=== PATIENT | male | born 1995 | race Caucasian/White ===

== ENCOUNTER 2024-03-03 05:25 | Day surgery (SDC) | payer OTHER ==
[~2024-03-03] VITALS: Ht 177.8 cm; Wt 95.6 kg
[~2024-03-03 05:25] MED LIST: LR 1,000 ML IV SCH; Ondansetron 4 MG/2 ML VIAL IV PRN
[2024-03-03] MEDS ORDERED: TUMS ULTRA ST1000 MG PO (06:01)
[2024-03-03] MEDS ORDERED: PROTONIX 40MG T40 MG PO (06:05)
[2024-03-03 06:18] VITALS: BP 132/85; PULSE 78; TEMP 97.8
[2024-03-03] MEDS ORDERED: Lidocaine PF 2% (20 MG/ML) 5 ML VIAL ONE (07:11)
[2024-03-03 07:35] VITALS: BP 115/80; PULSE 85; TEMP 98.1
--- NOTE | 2024-03-03 07:35 | NUR ---
PATIENT RETURNS TO BAY 1 IN ENDOSCOPY. VITAL SIGNS WNL. PATIENT REQUESTS WATER AND A MUFFIN. FRIEND IS AT BEDSIDE. CALL LIGHT WITHIN REACH. WILL CONTINUE TO MONITOR.
[2024-03-03 07:50] VITALS: BP 116/84; PULSE 86
--- NOTE | 2024-03-03 07:50 | NUR ---
PATIENT IS DOING WELL. DENIES ANY PAIN OR NAUSEA AFTER EATING AND DRINKING. IV DISCONTINUED. WAITING FOR PHYSICIAN TO SPEAK WITH PATIENT. WILL DISCHARGE ONCE PATIENT IS READY.
[2024-03-03 08:05] VITALS: BP 120/82; PULSE 76
--- NOTE | 2024-03-03 08:05 | NUR ---
PATIENT IS READY FOR DISCHARGE. LAST SET OF VITALS WNL. DISCHARGE INSTRUCTIONS REVIEWED WITH PATIENT AND HIS FRIEND. WILL DISCHARGE VIA WC WHEN PATIENT IS DRESSED.
== END 2024-03-03 08:10 | disposition home or self-care (01) ==
LOC: SDCO 05:25
DX: K21.00 Gastro-esophageal reflux disease with esophagitis, without bleeding (principal); K44.9 Diaphragmatic hernia without obstruction or gangrene
CPT/HCPCS: C1726; J2704; J7120